=== PATIENT | male | born 1955 | race Two or more races ===

== ENCOUNTER 2020-06-19 05:52 | Emergency (ER) | payer BC ==
[~2020-06-19] VITALS: Ht 170.2 cm; Wt 93.6 kg
[2020-06-19 06:20] LABS: BASO % 0 % (0-3); EOS # 0.1 x10^3/uL (0.0-0.7); EOS % 1 % (0-3); HEMATOCRIT 45.2 % (39.0-53.0); HEMOGLOBIN 15.6 g/dL (13.0-17.5); LYMPH # 0.7 x10^3/uL (1.0-4.8); LYMPH % 6 % (24-48); MEAN CORPUSCULAR HEMOGLOBIN 31 pg (25-35); MEAN CORPUSCULAR HGB CONC 35 g/dL (31-37); MEAN CORPUSCULAR VOLUME 89 fL (79-100); MONO # 1.4 x10^3/uL (0.0-1.1); MONO % 12 % (0-9); NEUT # 9.6 x10^3uL (1.8-7.7); NEUT % 82 % (31-73); PLATELET COUNT 152 x10^3/uL (140-400); RED BLOOD COUNT 5.07 x10^6/uL (4.30-5.70); RED CELL DISTRIBUTION WIDTH 13.3 % (11.5-14.5); WHITE BLOOD COUNT 11.7 x10^3/uL (4.0-11.0)
--- NOTE | 2020-06-19 06:20 | PHYS DOC ---
Past History Past Medical History: Asthma, Diabetes, Hypertension, Kidney Stones Past Surgical History: No Surgical History Smoking: Non-smoker Alcohol Use: Rarely Drug Use: None General Adult EDM: Chief Complaint: FLANK PAIN HPI: HPI: Patient is a 64-year-old male who presented to ER today for evaluation of left flank pain started 2 days ago. The pain radiated from the left flank area into left groin. Patient denies urinating blood. Patient has history of kidney stone, he feels like he had another kidney stone attack. Patient denies any fever, no cough, no chest pain. Patient denies any recent exposure to anybody who tested positive for COVID-19. Review of Systems: Review of Systems: Constitutional: Denies fever or chills Eyes: Denies change in visual acuity HENT: Denies nasal congestion or sore throat Respiratory: Denies cough or shortness of breath Cardiovascular: Denies chest pain or edema GI: Positive for left flank pain, no nausea vomiting, no diarrhea. : Denies dysuria Musculoskeletal: Denies back pain or joint pain Integument: Denies rash Neurologic: Denies headache, focal weakness or sensory changes Endocrine: Denies polyuria or polydipsia Lymphatic: Denies swollen glands Psychiatric: Denies depression or anxiety Heart Score: Risk Factors: Risk Factors: DM, Current or recent (<one month) smoker, HTN, HLP, family history of CAD, obesity. Risk Scores: Score 0 - 3: 2.5% MACE over next 6 weeks - Discharge Home Score 4 - 6: 20.3% MACE over next 6 weeks - Admit for Clinical Observation Score 7 - 10: 72.7% MACE over next 6 weeks - Early Invasive Strategies Current Medications: Current Meds: Current Medications Medications (Trade) Dose Ordered Sig/[facility] Start Time Stop Time Status Last Admin Dose Admin Ketorolac Tromethamine (Toradol 30mg Vial) 30 mg 1X ONCE 06/19/20 06:30 06/19/20 06:31 Morphine Sulfate (Morphine 4mg Syringe) 4 mg 1X ONCE 06/19/20 06:30 06/19/20 06:31 Ondansetron HCl (Zofran) 4 mg 1X ONCE 06/19/20 06:30 06/19/20 06:31 Sodium Chloride 1,000 ml @ 1,000 mls/hr 1X ONCE 06/19/20 06:30 06/19/20 07:29 Allergies: Allergies: Allergies Coded Allergies Type Severity Reaction Last Updated Verified No Known Drug Allergies 06/19/20 No Physical Exam: PE: Constitutional: Well developed, well nourished, in mild acute distress due to pain, non-toxic appearance. [] HENT: Normocephalic, atraumatic, bilateral external ears normal, oropharynx moist, no oral exudates, nose normal. [] Eyes: PERRLA, EOMI, conjunctiva normal, no discharge. [] Neck: Normal range of motion, no tenderness, supple, no stridor. [] Cardiovascular:Heart rate regular rhythm, no murmur [] Lungs & Thorax: Bilateral breath sounds clear to auscultation [] Abdomen: Bowel sounds normal, soft, no tenderness, no masses, no pulsatile masses. [] Skin: Warm, dry, no erythema, no rash. [] Back: No tenderness, there is left CVA tenderness. [] Extremities: No tenderness, no cyanosis, no clubbing, ROM intact, no edema. [] Neurologic: Alert and oriented X 3, normal motor function, normal sensory function, no focal deficits noted. [] Psychologic: Affect normal, judgement normal, mood normal. [] Current Patient Data: Labs: Laboratory Tests Test 06/19/20 06:07 06/19/20 08:04 06/19/20 08:56 White Blood Count 11.7 x10^3/uL Red Blood Count 5.07 x10^6/uL Hemoglobin 15.6 g/dL Hematocrit 45.2 % Mean Corpuscular Volume 89 fL Mean Corpuscular Hemoglobin 31 pg Mean Corpuscular Hemoglobin Concent 35 g/dL Red Cell Distribution Width 13.3 % Platelet Count 152 x10^3/uL Neutrophils (%) (Auto) 82 % Lymphocytes (%) (Auto) 6 % Monocytes (%) (Auto) 12 % Eosinophils (%) (Auto) 1 % Basophils (%) (Auto) 0 % Neutrophils # (Auto) 9.6 x10^3uL Lymphocytes # (Auto) 0.7 x10^3/uL Monocytes # (Auto) 1.4 x10^3/uL Eosinophils # (Auto) 0.1 x10^3/uL Basophils # (Auto) 0.0 x10^3/uL Sodium Level 122 mmol/L 123 mmol/L Potassium Level 3.8 mmol/L 4.2 mmol/L Chloride Level 90 mmol/L 93 mmol/L Carbon Dioxide Level 17 mmol/L 21 mmol/L Anion Gap 15 9 Blood Urea Nitrogen 20 mg/dL 20 mg/dL Creatinine 1.8 mg/dL 1.8 mg/dL Estimated GFR (Cockcroft-Gault) 38.4 38.4 BUN/Creatinine Ratio 11 Glucose Level 184 mg/dL 178 mg/dL Calcium Level 8.7 mg/dL 7.9 mg/dL Magnesium Level 1.5 mg/dL Total Bilirubin 1.4 mg/dL Aspartate Amino Transf (AST/SGOT) 22 U/L Alanine Aminotransferase (ALT/SGPT) 72 U/L Alkaline Phosphatase 65 U/L Total Protein 7.9 g/dL Albumin 3.9 g/dL Albumin/Globulin Ratio 1.0 Lipase 80 U/L Urine Collection Type Unknown Urine Color Yellow Urine Clarity Clear Urine pH 6.0 Urine Specific Anchor 1.015 Urine Protein Neg Urine Glucose (UA) 250 mg/dL Urine Ketones (Stick) Trace mg/dL Urine Blood Trace Urine Nitrite Neg Urine Bilirubin Neg Urine Urobilinogen Dipstick 0.2 mg/dL Urine Leukocyte Esterase Neg Urine RBC 3-5 /HPF Urine WBC Occ /HPF Urine Squamous Epithelial Cells Few /LPF Urine Bacteria 0 /HPF Current Medications Medications (Trade) Dose Ordered Sig/[place] Route PRN Reason Start Time Stop Time Status Last Admin Dose Admin Ketorolac Tromethamine (Toradol 30mg Vial) 30 mg 1X ONCE IVP 06/19/20 06:30 06/19/20 06:31 DC 06/19/20 06:19 Ondansetron HCl (Zofran) 4 mg 1X ONCE IVP 06/19/20 06:30 06/19/20 06:31 DC 06/19/20 06:19 Morphine Sulfate (Morphine 4mg Syringe) 4 mg 1X ONCE IV 06/19/20 06:30 06/19/20 06:31 DC 06/19/20 06:18 Sodium Chloride 1,000 ml @ 1,000 mls/hr 1X ONCE IV 06/19/20 06:30 06/19/20 07:29 DC 06/19/20 06:18 Magnesium Sulfate 50 ml @ 25 mls/hr 1X ONCE IV 06/19/20 07:00 06/19/20 09:00 DC 06/19/20 07:21 Vital Signs: Vital Signs Date Time Temp Pulse Resp B/P (MAP) Pulse Ox O2 Delivery O2 Flow Rate FiO2 06/19/20 05:52 98.2 104 24 149/95 (113) 96 Room Air EKG: EKG: [] Radiology/Procedures: Radiology/Procedures: [][address] [address] IMAGING REPORT Signed PATIENT: MIGUEL ANGEL EISENBERG ACCOUNT: [id number] : 1955 LOCATION: ER AGE: 64 SEX: M EXAM STATUS: REG ER ORD. PHYSICIAN: LASHAWN RUBALCAVA DO REASON: left flank pain, hx of kidney stone PROCEDURE: CT ABDOMEN PELVIS WO CONTRAST CT ABDOMEN PELVIS WO CONTRAST INDICATION: left flank pain, hx of kidney stone EXAM: Noncontrast CT of the abdomen and pelvis. Coronal and sagittal reformatted images were performed. PQRS compliance statement: One or more of the following individualized dose reduction techniques were utilized for this examination: 1. Automated exposure control 2. Adjustment of the mA and/or kV according to patient size 3. Use of iterative reconstruction technique COMPARISON: None FINDINGS: No free air, free fluid, or fluid collection. Lower chest: The visualized lower lungs are aerated. No pleural or pericardial effusion. ABDOMEN: Liver: Hepatic steatosis. Gallbladder and biliary: Normal gallbladder without radiopaque stone. Normal caliber bile ducts. Spleen: Normal spleen. Pancreas: The noncontrast pancreas is homogeneous in attenuation without peripancreatic inflammatory changes. Adrenal glands: Normal adrenal glands. Kidneys and ureters: Mild left hydronephrosis with a 6 x 5 mm calculus at the ureteropelvic junction, and two additional 3 mm calculi at the ureteropelvic junction just proximal to the obstructing stone. Additional nonobstructive 4 mm left renal calculus.. GI tract: The stomach is decompressed and poorly evaluated. Normal caliber small bowel and colon. Mild colonic diverticulosis. Appendix is not seen. Vascular structures: Normal caliber abdominal aorta. Mild aortoiliac atherosclerotic disease. Lymph nodes: No lymphadenopathy in the abdomen or pelvis. PELVIS: Genitourinary system: Normal bladder. SKELETAL STRUCTURES AND SOFT TISSUES: Moderate to severe degenerative disc disease. Multilevel mild to moderate spinal canal stenosis. Multilevel moderate to severe neuroforaminal narrowing. IMPRESSION: Mild left hydronephrosis with 3 calculi at the ureteropelvic junction: a 5 x 6 mm calculus and two smaller 3 mm calculi just proximal to it. Electronically signed by: El Ronquillo MD (06/19/2020 7:07 AM) [id number] DICTATED AND SIGNED BY: EL RONQUILLO MD DATE: 06/19/20706 CC: CHARITO MENDOZA MD; LASHAWN RUBALCAVA DO ~ Course & Med Decision Making: Course & Med Decision Making Pertinent Labs and Imaging studies reviewed. (See chart for details) Patient is a 64-year-old male who was evaluated in the ER due to left flank pain. CT scan show multiple stones on the left ureteropelvic junction, with mild hydronephrosis. Patient creatinine level elevated to 1.8, no baseline to compare, his sodium level is 122. Patient is only on metformin, Lipitor and lisinopril. Patient will need to be evaluated by urology and nephrology. None of the service available at this hospital. Patient will need to be transferred to another hospital. Dr. Sotelo at [facility] agreed to accept the patient for transfer there. Sohan Disclaimer: Sohan Disclaimer: This electronic medical record was generated, in whole or in part, using a voice recognition dictation system. Departure Departure: Impression: Primary Impression: Kidney stone on left side Additional Impressions: Hyponatremia Hypomagnesemia syndrome Disposition: [facility] Condition: IMPROVED (Transferred to [facility], ACCEPTED BY DR. SOTELO) Referrals: CHARITO MENDOZA MD (PCP) Justification of Admission: Justification of Admission: Justification of Admission Dx: N/A LASHAWN RUBALCAVA DO Jun 19, 2020 06:20
[2020-06-19] MEDS ORDERED: IV NORMAL SALINE 1,000ML 1,000 ML IV ONE ×2 (06:30→13:45)
[2020-06-19] MEDS ORDERED: MORPHINE SULFATE 4 MG/ML DISP.SYRIN. IV ONE ×2 (06:30→14:45)
[2020-06-19] MEDS ORDERED: ONDANSETRON PF 4 MG/2 ML VIAL. IVP ONE (06:30)
[2020-06-19] MEDS ORDERED: KETOROLAC 30 MG/ML VIAL. IVP ONE (06:30)
[2020-06-19 06:33] LABS: CALCIUM 8.7 mg/dL (8.5-10.1); CREATININE 1.8 mg/dL (0.7-1.3); GFR 38.4; POTASSIUM 3.8 mmol/L (3.5-5.1)
[2020-06-19 06:38] LABS: ALBUMIN 3.9 g/dL (3.4-5.0); MAGNESIUM 1.5 mg/dL (1.8-2.4); TOTAL BILIRUBIN 1.4 mg/dL (0.2-1.0); TOTAL PROTEIN 7.9 g/dL (6.4-8.2)
[2020-06-19] MEDS ORDERED: MAGNESIUM SULFATE 2GM 50 ML IV ONE (07:00)
--- NOTE | 2020-06-19 07:09 | RAD ---
CT ABDOMEN PELVIS WO CONTRAST INDICATION: left flank pain, hx of kidney stone EXAM: Noncontrast CT of the abdomen and pelvis. Coronal and sagittal reformatted images were performed. PQRS compliance statement: One or more of the following individualized dose reduction techniques were utilized for this examination: 1. Automated exposure control 2. Adjustment of the mA and/or kV according to patient size 3. Use of iterative reconstruction technique COMPARISON: None FINDINGS: No free air, free fluid, or fluid collection. Lower chest: The visualized lower lungs are aerated. No pleural or pericardial effusion. ABDOMEN: Liver: Hepatic steatosis. Gallbladder and biliary: Normal gallbladder without radiopaque stone. Normal caliber bile ducts. Spleen: Normal spleen. Pancreas: The noncontrast pancreas is homogeneous in attenuation without peripancreatic inflammatory changes. Adrenal glands: Normal adrenal glands. Kidneys and ureters: Mild left hydronephrosis with a 6 x 5 mm calculus at the ureteropelvic junction, and two additional 3 mm calculi at the ureteropelvic junction just proximal to the obstructing stone. Additional nonobstructive 4 mm left renal calculus.. GI tract: The stomach is decompressed and poorly evaluated. Normal caliber small bowel and colon. Mild colonic diverticulosis. Appendix is not seen. Vascular structures: Normal caliber abdominal aorta. Mild aortoiliac atherosclerotic disease. Lymph nodes: No lymphadenopathy in the abdomen or pelvis. PELVIS: Genitourinary system: Normal bladder. SKELETAL STRUCTURES AND SOFT TISSUES: Moderate to severe degenerative disc disease. Multilevel mild to moderate spinal canal stenosis. Multilevel moderate to severe neuroforaminal narrowing. IMPRESSION: Mild left hydronephrosis with 3 calculi at the ureteropelvic junction: a 5 x 6 mm calculus and two smaller 3 mm calculi just proximal to it. Electronically signed by: Jordan Ronquillo MD (06/19/2020 7:07 AM) [id number]
[2020-06-19 08:38] LABS: BILIRUBIN,URINE NEG (NEG); CLARITY,URINE CLEAR; COLOR,URINE YELLOW; GLUCOSE,URINE 250 mg/dL (NEG); NITRITE,URINE NEG (NEG); UROBILINOGEN,URINE 0.2 mg/dL (0.2 mg/dL)
[2020-06-19 08:43] LABS: BACTERIA,URINE 0 /HPF (0-FEW); SQUAMOUS EPITHELIAL CELL,UR FEW /LPF; WBC,URINE OCC /HPF (0-4)
[2020-06-19 09:13] LABS: CALCIUM 7.9 mg/dL (8.5-10.1); CREATININE 1.8 mg/dL (0.7-1.3); GFR 38.4; POTASSIUM 4.2 mmol/L (3.5-5.1)
[2020-06-19 16:48] VITALS: BP 125/68
== END 2020-06-19 18:25 | disposition short-term general hospital (02) ==
LOC: ER 05:52
DX: N13.2 Hydronephrosis with renal and ureteral calculous obstruction (principal); E87.1 Hypo-osmolality and hyponatremia; E83.42 Hypomagnesemia; J45.909 Unspecified asthma, uncomplicated; E11.9 Type 2 diabetes mellitus without complications; I10 Essential (primary) hypertension
CPT/HCPCS: 36415; 74176; 80048; 80053; 81001; 83690; 83735; 85025; 96361; 96365; 96366; 96375; 96376; 99285; J1885; J2270; J2405; J3475; J7030